=== PATIENT | female | born 1990 | race Caucasian/White ===

== ENCOUNTER → 2016-11-16 | Outpatient (CLI) | payer OTHER ==
[2016-11-16 10:28] LABS: PROLACTIN 10.03 ng/mL
== END | disposition home or self-care (01) ==
LOC: C.LAB1850 08:09 → MERGE 08:09
PROVIDERS: ATTEND Physician Assistant
DX: Z31.41 Encounter for fertility testing (principal)

== ENCOUNTER → 2017-03-16 | Outpatient (CLI) | payer OTHER ==
--- NOTE | 2017-03-16 11:27 | DIAGNOSTIC IMAGING REPORT ---
HYSTEROSALPINGOGRAM CLINICAL HISTORY: FERTILITY TESTING *DR BROWN TO DO* COMPARISON STUDY: No previous studies for comparison. FINDINGS: Fluoroscopic assistance during a hysterosalpingogram was performed. The uterus is tilted to the right. Both fallopian tubes filled a normal fashion. There is free spillage bilaterally. IMPRESSION: The fallopian tubes are patent bilaterally. Electronically signed by: Mike Kumar M.D. 03/16/2017 11:25 AM Dictated Date/Time: 03/16/2017 11:25 AM
== END | disposition home or self-care (01) ==
LOC: C.RAD 10:31
PROVIDERS: ATTEND Obstetrics & Gynecology
DX: Z31.41 Encounter for fertility testing (principal)

== ENCOUNTER 2018-08-08 22:27 | Inpatient (IN) ==
[2018-08-09] MEDS ORDERED: OXYTOCIN 30 UNITS/500 ML BAG IV PRN ×2 (00:22→09:34)
[2018-08-09] MEDS: LACTATED RINGER'S 1,000 ML IV PRN ×2 (00:41→02:04)
[2018-08-09 00:42] LABS: Hemoglobin 13.6 g/dL (12.0-16.0); Mean Corpuscular Volume 83.2 fL (80-100); Mean Platelet Volume 9.2 fL (7.4-10.4); Platelet Count 173 K/uL (130-400); RDW Coefficient of Variation 13.7 % (11.5-14.5); RDW Standard Deviation 41.6 fL (36.4-46.3); Red Blood Count 4.57 M/uL (4.2-5.4); White Blood Count 11.22 K/uL (4.8-10.8)
[2018-08-09] MEDS ORDERED: BUPIVACAINE 0.25% 30 ML VIAL ONE (00:43)
[2018-08-09] MEDS ORDERED: ePHEDrine sulfate 50 MG/ML AMP ONE (00:43)
[2018-08-09 00:45] LABS: Mean Corpuscular Hgb Conc 35.8 g/dL (32-36)
[2018-08-09] MEDS ORDERED: fentaNYL 2MCG/ML ROPIV 1.25MG/ML 100 ML BAG EPI ONE (00:45)
[2018-08-09] MEDS ORDERED: fentaNYL citrate 100 MCG/2 ML VIAL ONE (00:45)
--- NOTE | 2018-08-09 01:04 | Anesthesiology Consultation ---
Date of Service August 09, 2018 Assessment & Plan Chart Review Chart Review: Patient NOT seen in Pre Admission Testing and Acceptable Risk for Labor Epidural Consults Requested none ASA ASA2 Proposed Anesthesia Anesthesia Type: Labor Epidural Risk / Benefits Reviewed With: PT / POA / Parent / Guardian, Accepts Plan and Informed Consent Obtained History Height/Weight Height: 1.7 m Weight: 102.512 kg Allergies Allergy/AdvReac Type Severity Reaction Status Date / Time No Known Allergies Allergy Unverified 08/08/18 23:31 Medications Home Medications Medication Instructions Recorded Confirmed Last Taken vit-iron fum-folic ac 1 tab PO DAILY 08/08/18 08/08/18 08/07/18 21:30 [ Vitamin] Active Medications Generic Name Dose Route Start Last Admin Trade Name Freq PRN Reason Stop Dose Admin Lactated Ringer's 1,000 mls @ 125 mls/hr 08/09/18 00:22 08/09/18 00:41 Lr IV 08/11/18 00:21 999 mls/hr .Q8H PRN Administration L&D Protocol Protocol NPO Date Last Intake of Fluids: 08/09/18 Time Last Intake of Fluids: 00:30 Date Last Intake of Solids: 08/08/18 Time Last Intake of Solids: 19:00 Past Medical History Medical History GERD (gastroesophageal reflux disease) History of tooth extraction Exercise / Class Metabolic Activity II 4-5 Yardwork/Stairs/Walk up hill Past Surgical History Surgical History History of cholecystectomy Past Anesthesia History No Hx of Anesthesia Complications and No Family Hx of Anesthesia Complications History of PONV No Hx of PONV and No Hx of Motion Sickness Social History Smoking Status: Never smoker Do You Dip or Chew Tobacco: No Hx Alcohol Use: No Hx Substance Use: No substance use type: does not use Physical Exam Vital Signs Last Vital Signs Temp 36.9 C 08/08/18 23:04 Pulse 100 H 08/09/18 01:27 Resp 20 08/08/18 23:04 BP 121/84 08/09/18 01:17 Pulse Ox 96 08/09/18 01:27 ENMT Mouth: no TMJ abnormality and no TMJ clicking Thyromental Distance: > or= 3.5 Finger Breadths Mallampati Class: II Neck normal visual inspection; neck extension not limited Respiratory Auscultation: lungs clear to auscultation bilaterally Cardiovascular Rate/Rhythm: regular rate and regular rhythm Psychiatric Orientation: alert and oriented x 3 Testing Laboratory Results 08/09/18 00:31
[2018-08-09] MEDS ORDERED: NALOXONE HCL 0.4 MG/1 ML VIAL/CARP IV PRN (02:03)
[2018-08-09] MEDS ORDERED: fentaNYL 2MCG/ML ROPIV 1.25MG/ML 100 ML BAG EPI PRN (02:03)
[2018-08-09] MEDS ORDERED: NALBUPHINE HCL INJ 10 MG/ML AMP IV PRN (02:03)
[2018-08-09] MEDS ORDERED: ONDANSETRON INJ 2 MG/ML 2 ML VIAL IV PRN (02:03)
[2018-08-09] MEDS ORDERED: PROMETHAZINE HCL 12.5 MG in SODIUM CHLORIDE 0.9% 50 ML IV PRN (02:03)
[2018-08-09] MEDS ORDERED: ePHEDrine sulfate 50 MG/ML AMP IV PRN (02:03)
[2018-08-09] MEDS ORDERED: DiphenhydrAMINE HCL 50 MG/ML VIAL IV PRN (02:03)
[2018-08-09] MEDS ORDERED: NALOXONE HCL 1 MG in SODIUM CHLORIDE 0.9% 1000ML 1,000 ML IV PRN (02:03)
--- NOTE | 2018-08-09 07:24 | History & Physical Report ---
Date of Service August 09, 2018 Assessment & Plan (1) 38 weeks gestation of : Daniela Jennings is a 28yo who presents in labor. - GBS negative, RI, B+, VDRLR/RPR nonreactive - No membrane rupture at time of admission - Admit to L&D for spontaneous labor - Anticipate vaginal delivery with epidural - Anesthesiology consulted - LR 125cc/HR - NPO - Routine care History of Present Illness Chief Complaint: 38+ weeks , contractions Primary Care Provider: Jonah Suarez is a 28yo at 38+4 who presents for evaluation of labor. She is blood type B+, group B strep negative, VDRL nonreactive, rubella immune. She has no history of alcohol, recreational drug use, or tobacco use during . She is a past medical history of migraines. No headaches at time of visit. She is planning to deliver with an epidural. She plans to breast-feed exclusively. She is having strong contractions every 2 to 5 minutes at time of admission. No vaginal bleeding, no change in discharge, no pandey of fluid. Still feeling good movement. 3/95/-1/soft on admit No complications of . Denies other past medical problems Takes a vitamin daily, no other medication use No recent illnesses Allergies Allergy/AdvReac Type Severity Reaction Status Date / Time No Known Allergies Allergy Unverified 08/08/18 23:31 Home Medications Home Medications Medication Instructions Recorded Confirmed Type Vitamin 1 tab PO DAILY 08/08/18 08/08/18 History Patient History Medical History GERD (gastroesophageal reflux disease) History of tooth extraction Surgical History History of cholecystectomy Social History Preferred Language: Haitian Communication Ability: Effective Lay Brother Required: No Beliefs That Will Affect Care: None marital status: Current Living Situation: Family Current Living Situation Comment: lives with Other Information That Helps Us Care for You: No Feels Safe at Home: Yes Safety Concerns: Feels Safe At This Time Smoking Status: Never smoker Do You Dip or Chew Tobacco: No Second Hand Exposure: No Tobacco Cessation Education Requested by Patient: No Hx Alcohol Use: No Hx Substance Use: No Review of Systems All systems reviewed & are unremarkable except as noted in HPI & below Physical Exam Physical Exam: General: A&Ox3. NAD. Cooperative. HEENT: Atraumatic, normocephalic. Pulm: CTAB A&P. -wheezes, -rales, -rhonchi. Symmetrical chest rise. No increase work of breathing. No respiratory distress. Cardiac: RRR, -mrg. Radial pulses intact and symmetrical. Abdomen: Distended consisted with third trimester . No RUQ tenderness. On admission /-. Addendum: 0727hrs: Fully dilated per nursing staff. Results & Data Vital Signs (Past 12 Hours) Vital Signs Temp Pulse Resp BP Pulse Ox 08/09/18 07:17 104 H 99 08/09/18 07:16 102 H 93 08/09/18 07:14 100 H 133/82 08/09/18 07:12 101 H 100 08/09/18 07:07 97 H 99 08/09/18 07:03 36.7 C 18 08/09/18 07:02 112 H 97 08/09/18 07:00 97 H 128/77 94 08/09/18 06:57 101 H 99 08/09/18 06:52 93 H 99 08/09/18 06:47 98 H 99 08/09/18 06:44 100 H 134/83 08/09/18 06:42 103 H 99 08/09/18 06:37 96 H 100 08/09/18 06:32 106 H 98 08/09/18 06:29 86 127/74 08/09/18 06:27 91 H 99 08/09/18 06:22 97 H 98 08/09/18 06:17 93 H 99 08/09/18 06:16 88 116/70 08/09/18 06:12 99 H 100 08/09/18 06:07 97 H 98 08/09/18 06:02 94 H 98 08/09/18 06:00 95 H 131/66 08/09/18 05:57 90 97 08/09/18 05:52 84 96 08/09/18 05:47 84 98 08/09/18 05:44 96 H 120/63 08/09/18 05:42 82 97 08/09/18 05:37 89 98 08/09/18 05:32 89 98 08/09/18 05:29 88 127/68 08/09/18 05:27 92 H 97 08/09/18 05:22 90 96 06/06/19 05:17 90 97 08/09/18 05:14 97 H 129/72 08/09/18 05:12 94 H 97 08/09/18 05:07 94 H 96 08/09/18 05:02 91 H 97 08/09/18 05:01 94 H 130/72 08/09/18 04:57 92 H 98 08/09/18 04:52 95 H 98 08/09/18 04:47 92 H 97 08/09/18 04:44 95 H 129/91 08/09/18 04:42 88 98 08/09/18 04:40 98 H 92 08/09/18 04:37 92 H 100 08/09/18 04:32 95 H 94 08/09/18 04:29 85 130/67 08/09/18 04:27 92 H 97 08/09/18 04:22 107 H 97 08/09/18 04:17 109 H 97 08/09/18 04:15 106 H 135/88 08/09/18 04:12 102 H 97 08/09/18 04:11 107 H 94 08/09/18 04:07 90 97 08/09/18 04:02 89 97 08/09/18 04:00 99 H 133/81 08/09/18 03:57 98 H 97 08/09/18 03:52 95 H 98 08/09/18 03:47 106 H 98 08/09/18 03:44 109 H 132/86 08/09/18 03:42 103 H 99 08/09/18 03:37 102 H 99 08/09/18 03:32 101 H 98 08/09/18 03:29 106 H 132/83 08/09/18 03:27 105 H 100 08/09/18 03:23 108 H 129/84 08/09/18 03:22 119 H 98 08/09/18 03:17 103 H 98 08/09/18 03:12 125 H 99 08/09/18 03:09 102 H 124/75 08/09/18 03:07 93 H 97 08/09/18 03:02 96 H 96 08/09/18 02:57 98 H 96 08/09/18 02:53 103 H 122/77 08/09/18 02:52 96 H 98 08/09/18 02:47 103 H 96 08/09/18 02:42 100 H 99 08/09/18 02:39 100 H 130/82 08/09/18 02:37 95 H 98 08/09/18 02:32 101 H 98 08/09/18 02:27 110 H 99 08/09/18 02:23 111 H 122/70 08/09/18 02:22 117 H 98 08/09/18 02:17 101 H 100 08/09/18 02:12 117 H 99 08/09/18 02:08 108 H 117/62 08/09/18 02:07 122 H 100 08/09/18 02:06 126 H 125/71 08/09/18 02:04 125 H 123/69 08/09/18 02:02 128 H 126/63 97 08/09/18 02:00 117 H 140/75 08/09/18 01:59 125 H 139/73 08/09/18 01:58 125 H 135/73 08/09/18 01:57 129 H 96 08/09/18 01:56 134 H 131/70 08/09/18 01:54 120 H 132/76 08/09/18 01:52 118 H 97 08/09/18 01:51 106 H 126/76 91 08/09/18 01:50 100 H 134/83 08/09/18 01:47 97 H 96 08/09/18 01:42 100 H 97 08/09/18 01:38 122 H 137/86 08/09/18 01:37 99 H 96 08/09/18 01:32 101 H 97 08/09/18 01:27 100 H 96 08/09/18 01:22 100 H 97 08/09/18 01:17 93 H 121/84 96 08/09/18 01:12 102 H 97 08/09/18 01:07 101 H 97 08/09/18 01:02 103 H 97 08/09/18 00:59 105 H 131/82 08/09/18 00:57 96 H 98 08/09/18 00:52 92 H 97 08/08/18 23:04 36.9 C 99 H 20 126/84 Monitoring External Monitor Category I tracing, baseline ~130bpm Supervising Physician Co-Signing Physician Notes Patient seen and agree with the above findings and plan Resident Activity Tracking Resident Involvement: Resident Care Provided Care Provided: Adult Hospital Medicine
[2018-08-09] MEDS ORDERED: IBUPROFEN 600 MG TAB PO PRN (09:34)
[2018-08-09] MEDS ORDERED: BENZOCAINE 20% AER SPR 82.5 GM CAN EXT PRN (09:34)
[2018-08-09] MEDS ORDERED: ACETAMINOPHEN 325 MG TAB PO PRN (09:34)
[2018-08-09] MEDS ORDERED: SUPERCREAM 0.870% 15 GM JAR EXT PRN (09:34)
[2018-08-09] MEDS ORDERED: DIPHTHERIA/TETANUS/PERTUSSIS 0.5 ML SYR/VIAL IM ONE (09:34)
[2018-08-09] MEDS ORDERED: HYDROCORTISONE ACETATE 25 MG SUPP PR PRN (09:34)
[2018-08-09] MEDS ORDERED: BISACODYL 10 MG SUPP PR PRN (09:34)
--- NOTE | 2018-08-09 14:52 | Anesthesia Procedure Note ---
Date of Service August 09, 2018 Anesthesia Post Epidural Note Vital Signs Vital Signs: Temp Pulse Pulse Resp BP BP Pulse Ox 08/09/18 11:50 36.7 C 100 H 20 122/79 100 08/09/18 11:35 18 08/09/18 11:30 105 H 128/73 08/09/18 11:05 18 08/09/18 10:35 18 08/09/18 10:29 96 H 125/59 L 08/09/18 10:20 18 08/09/18 10:14 116 H 142/63 H 08/09/18 10:05 18 08/09/18 09:50 18 08/09/18 09:35 18 08/09/18 09:29 105 H 120/73 08/09/18 09:14 99 H 134/76 08/09/18 09:12 119 H 99 08/09/18 09:07 149 H 94 08/09/18 09:02 110 H 100 08/09/18 09:01 113 H 131/92 08/09/18 09:00 18 08/09/18 08:57 124 H 100 08/09/18 08:52 117 H 99 08/09/18 08:47 108 H 96 08/09/18 08:44 110 H 131/61 08/09/18 08:42 101 H 99 08/09/18 08:37 117 H 99 08/09/18 08:32 115 H 95 08/09/18 08:30 18 08/09/18 08:27 103 H 97 08/09/18 08:22 113 H 100 08/09/18 08:17 99 H 100 08/09/18 08:14 110 H 125/94 08/09/18 08:12 105 H 99 08/09/18 08:07 90 99 08/09/18 08:02 99 H 99 08/09/18 08:00 18 08/09/18 07:59 101 H 134/74 08/09/18 07:57 99 H 99 08/09/18 07:52 94 H 100 08/09/18 07:47 93 H 100 08/09/18 07:45 93 H 134/73 08/09/18 07:42 104 H 99 08/09/18 07:37 116 H 99 08/09/18 07:32 103 H 99 06/06/19 07:31 108 H 131/83 06/06/19 07:30 109 H 92 08/09/18 07:27 107 H 99 08/09/18 07:22 109 H 100 08/09/18 07:17 104 H 99 08/09/18 07:16 102 H 93 08/09/18 07:14 100 H 133/82 08/09/18 07:12 101 H 100 08/09/18 07:07 97 H 99 08/09/18 07:03 36.7 C 18 08/09/18 07:02 112 H 97 08/09/18 07:00 97 H 128/77 94 08/09/18 06:57 101 H 99 08/09/18 06:52 93 H 99 08/09/18 06:47 98 H 99 08/09/18 06:44 100 H 134/83 08/09/18 06:42 103 H 99 08/09/18 06:37 96 H 100 08/09/18 06:32 106 H 98 08/09/18 06:29 86 127/74 08/09/18 06:27 91 H 99 08/09/18 06:22 97 H 98 08/09/18 06:17 93 H 99 08/09/18 06:16 88 116/70 08/09/18 06:12 99 H 100 08/09/18 06:07 97 H 98 08/09/18 06:02 94 H 98 08/09/18 06:00 95 H 131/66 08/09/18 05:57 90 97 08/09/18 05:52 84 96 08/09/18 05:47 84 98 08/09/18 05:44 96 H 120/63 08/09/18 05:42 82 97 08/09/18 05:37 89 98 08/09/18 05:32 89 98 08/09/18 05:29 88 127/68 08/09/18 05:27 92 H 97 08/09/18 05:22 90 96 08/09/18 05:17 90 97 08/09/18 05:14 97 H 129/72 08/09/18 05:12 94 H 97 08/09/18 05:07 94 H 96 08/09/18 05:02 91 H 97 08/09/18 05:01 94 H 130/72 08/09/18 04:57 92 H 98 08/09/18 04:52 95 H 98 08/09/18 04:47 92 H 97 08/09/18 04:44 95 H 129/91 08/09/18 04:42 88 98 08/09/18 04:40 98 H 92 08/09/18 04:37 92 H 100 08/09/18 04:32 95 H 94 08/09/18 04:29 85 130/67 08/09/18 04:27 92 H 97 08/09/18 04:22 107 H 97 08/09/18 04:17 109 H 97 08/09/18 04:15 106 H 135/88 08/09/18 04:12 102 H 97 08/09/18 04:11 107 H 94 08/09/18 04:07 90 97 08/09/18 04:02 89 97 08/09/18 04:00 99 H 133/81 08/09/18 03:57 98 H 97 08/09/18 03:52 95 H 98 08/09/18 03:47 106 H 98 08/09/18 03:44 109 H 132/86 08/09/18 03:42 103 H 99 08/09/18 03:37 102 H 99 08/09/18 03:32 101 H 98 08/09/18 03:29 106 H 132/83 08/09/18 03:27 105 H 100 08/09/18 03:23 108 H 129/84 08/09/18 03:22 119 H 98 08/09/18 03:17 103 H 98 08/09/18 03:12 125 H 99 08/09/18 03:09 102 H 124/75 08/09/18 03:07 93 H 97 08/09/18 03:02 96 H 96 08/09/18 02:57 98 H 96 08/09/18 02:53 103 H 122/77 08/09/18 02:52 96 H 98 08/09/18 02:47 103 H 96 08/09/18 02:42 100 H 99 08/09/18 02:39 100 H 130/82 08/09/18 02:37 95 H 98 08/09/18 02:32 101 H 98 08/09/18 02:27 110 H 99 08/09/18 02:23 111 H 122/70 08/09/18 02:22 117 H 98 08/09/18 02:17 101 H 100 08/09/18 02:12 117 H 99 08/09/18 02:08 108 H 117/62 08/09/18 02:07 122 H 100 08/09/18 02:06 126 H 125/71 08/09/18 02:04 125 H 123/69 08/09/18 02:02 128 H 126/63 97 08/09/18 02:00 117 H 140/75 08/09/18 01:59 125 H 139/73 08/09/18 01:58 125 H 135/73 08/09/18 01:57 129 H 96 08/09/18 01:56 134 H 131/70 08/09/18 01:54 120 H 132/76 08/09/18 01:52 118 H 97 08/09/18 01:51 106 H 126/76 91 08/09/18 01:50 100 H 134/83 08/09/18 01:47 97 H 96 08/09/18 01:42 100 H 97 08/09/18 01:38 122 H 137/86 08/09/18 01:37 99 H 96 08/09/18 01:32 101 H 97 08/09/18 01:27 100 H 96 08/09/18 01:22 100 H 97 08/09/18 01:17 93 H 121/84 96 08/09/18 01:12 102 H 97 08/09/18 01:07 101 H 97 08/09/18 01:02 103 H 97 08/09/18 00:59 105 H 131/82 08/09/18 00:57 96 H 98 08/09/18 00:52 92 H 97 08/08/18 23:04 36.9 C 99 H 20 126/84 Notes Mental Status: alert / awake / arousable Nausea / Vomiting: adequately controlled Pain: adequately controlled Airway Patency, RR, SpO2: stable & adequate BP & HR: stable & adequate Hydration State: stable & adequate Neuraxial Anesthesia: was administered and sensory block is resolving Anesthetic Complications: no major complications apparent and Pt Satisfied with anesthetic care Epidural: Removed without complications and With tip intact
[2018-08-09] MEDS: DOCUSATE SODIUM 100 MG CAP PO SCH (20:11)
--- NOTE | 2018-08-10 06:40 | Obstetrical Progress Note ---
Date of Service <Herb Blakely MD - Last Filed: 08/10/18 06:39> August 10, 2018 Assessment & Plan <Herb Blakely MD - Last Filed: 08/10/18 06:39> (1) Vaginal delivery: Daniela is a 28yo who presented at 38 weeks now s/p now PPD#1 - GBS negative, blood type B+, RI - Feels well today. Eating well, voiding well, ambulating well. - Pain well controlled with ibuprofen 600mg Q4H PRN. - Routine care - After discharge will have [address] Rogers. (2) 38 weeks gestation of : Subjective <Herb Blakely MD - Last Filed: 08/10/18 06:39> Ambulation: ambulating normally Voiding: no voiding problems Passing Gas:: Yes Diet Tolerance:: regular diet Lochia:: Small Feeding Type:: breast feeding (some difficulty with latch. Working with advice and nurses) Current Pain Level(1-10): 0 Review of Systems Denies fever, chills, sweats Denies shortness of breath, difficulty breathing, chest pain, palpitations, chest pressure. Denies breast pain. Denies dysuria. Denies headache. Physical Exam <Herb Blakely MD - Last Filed: 08/10/18 06:39> Vital Signs (Past 24 Hours) Last Vital Signs Temp 36.6 C 08/10/18 03:45 Pulse 85 08/10/18 03:45 Resp 18 08/10/18 03:45 BP 92/60 L 08/10/18 03:45 Pulse Ox 98 08/10/18 03:45 General: Alert, oriented. No acute distress. Cardiac: Regular rate and rhythm, no murmurs/rubs/gallops. Respiratory: Clear to auscultation anterior and posteriorly, no wheezes/rales/rhonchi. No increased work of breathing. Symmetrical chest rise. No respiratory distress. Abdomen: Soft, nontender, nondistended. Bowel sounds present. Uterus: Uterine fundus firm, palpable 1cm below umbilicus. Lower Extremities: No lower extremity edema or swelling. No deep calf pain. Avila's negative bilaterally. <Marcelle Barone MD - Last Filed: 06/07/19 07:31> Co-Signing Physician Notes I have reviewed the resident's note and examined the patient myself, and agree with the note above. Resident Activity Tracking <Herb Blakely MD - Last Filed: 08/10/18 06:39> Resident Involvement: Resident Care Provided Care Provided: Adult Hospital Medicine
[2018-08-10 07:08] LABS: Hematocrit (blood only) 34.4 % (37-47); Hemoglobin 11.9 g/dL (12.0-16.0)
[2018-08-10] MEDS: DOCUSATE SODIUM 100 MG CAP PO SCH ×2 (09:07→20:44)
[2018-08-10] MEDS: PRENATAL VITAMIN 1 TAB PO SCH (09:07)
[2018-08-10] MEDS ORDERED: BISACODYL 5 MG TABEC PO SCH (20:00)
--- NOTE | 2018-08-11 06:56 | Obstetrical Progress Note ---
Date of Service <Herb Blakely MD - Last Filed: 08/11/18 06:56> August 11, 2018 Assessment & Plan <Herb Blakely MD - Last Filed: 08/11/18 06:56> (1) Vaginal delivery: Daniela is a 28yo who presented at 38 weeks now s/p now PPD#2 - GBS negative, blood type B+, RI - Feels well today. Eating well, voiding well, ambulating well. - well without difficulty - Pain well controlled with ibuprofen 600mg Q4H PRN. - Routine care - After discharge will have [address] Rogers. Subjective <Herb Blakely MD - Last Filed: 08/11/18 06:56> Ambulation: ambulating normally Voiding: no voiding problems Passing Gas:: Yes Diet Tolerance:: regular diet Lochia:: Small Feeding Type:: breast feeding Current Pain Level(1-10): 0 Review of Systems Denies fever, chills, sweats Denies shortness of breath, difficulty breathing, chest pain, palpitations, chest pressure. Denies breast pain. Denies dysuria. Denies headache. Physical Exam <Herb Blakely MD - Last Filed: 08/11/18 06:56> General: Alert, oriented. No acute distress. Cardiac: Regular rate and rhythm, no murmurs/rubs/gallops. Respiratory: Clear to auscultation anterior and posteriorly, no wheezes/rales/rhonchi. No increased work of breathing. Symmetrical chest rise. No respiratory distress. Abdomen: Soft, nontender, nondistended. Bowel sounds present. Uterus: Uterine fundus firm, palpable >2cm below umbilicus. Lower Extremities: No lower extremity edema or swelling. No deep calf pain. Avila's negative bilaterally. Results & Data <Herb Blakely MD - Last Filed: 08/11/18 06:56> Vital Signs (Past 12 Hours) Vital Signs Temp Pulse Resp BP 08/10/18 23:30 36.6 C 93 H 18 137/80 <Sienna Joyce MD, FACOG - Last Filed: 08/11/18 07:56> Co-Signing Physician Notes Resident Physician Supervision Note: I interviewed and examined the patient. Discussed with Dr. Blakely and agree with findings and plan as documented in the note. Any exceptions or clarifications are listed here: Doing well. Desires d/c. Instructions given. Documented By: Sienna Joyce MD, FACOG Resident Activity Tracking <Herb Blakely MD - Last Filed: 08/11/18 06:56> Resident Involvement: Resident Care Provided Care Provided: Adult Hospital Medicine
[2018-08-11] MEDS: PRENATAL VITAMIN 1 TAB PO SCH (08:41)
[2018-08-11] MEDS: DOCUSATE SODIUM 100 MG CAP PO SCH (08:41)
--- NOTE | 2018-08-15 18:46 | Delivery Summary ---
DATE OF OPERATION: 08/09/2018 PROCEDURE: Normal spontaneous vaginal delivery. SURGEON: Dileep Rogers MD PREOPERATIVE DIAGNOSES: 1. Single intrauterine at 38 weeks 4 days gestational age. 2. Labor. POSTOPERATIVE DIAGNOSES: 1. Single intrauterine at 38 weeks 4 days gestational age. 2. Labor. 3. Delivered. ESTIMATED BLOOD LOSS: 300 mL. DRAINS: None. FLUIDS: Continuous lactated ringer. URINE OUTPUT: Not measured. COMPLICATIONS: None. FINDINGS: Viable with the weight pending, Apgars of 8 and 9 at 1 and 5 minutes respectively. INDICATIONS: The patient is a 28-year-old G1, P0, admitted at 38 weeks 4 days gestational age in labor. At initial evaluation, she was found to be 3 cm dilated, 90% effaced, -1 station. The patient underwent a labor greater than 1 hour and was noted to progress to 5 cm dilated, 90% effaced, -1 station. The patient was admitted, received an epidural for anesthesia and progressed in labor without further augmentation to complete-complete +2, at which time she felt the urge to push. The patient pushed under an hour to achieve delivery. PROCEDURE: The patient progressed to 10 cm dilated, 100% effaced, +2 station, pushed over intact perineum with epidural anesthesia and delivered a viable with weight and Apgars as noted above. Head of the delivered in EDDY position and restituted to right transverse. Nuchal cord was noted. Body and shoulders quickly followed. The was delivered to maternal abdomen, noted to be vigorous. A 1 minute delayed cord clamping was initiated where the cord was doubly clamped and cut. Cord blood was then obtained. Attention was then turned to delivery of the placenta, it was delivered intact with 3-vessel cord with gentle cord traction. On inspection of the perineum, vagina and cervix, there was noted to be a second degree perineal laceration which was repaired with a traditional crown stitch using 3-0 Vicryl. Needle, sponge and instrument counts were correct at the completion of the case. Both mother and are stable in the immediate post delivery period. I attest to the content of the Intraoperative Record and any orders documented therein. Any exception s are noted below.
== END 2018-08-11 12:48 | disposition home or self-care (01) | DRG 807 ==
LOC: OPB 22:27 → 4S1 22:30 → 4N 08-09 11:50

== ENCOUNTER 2023-04-05 07:51 | Inpatient (IN) ==
[2023-04-05] MEDS ORDERED: LIDOCAINE 1% LOCAL 20 ML VIAL INFIL PRN (08:09)
[2023-04-05] MEDS ORDERED: OXYTOCIN 30 UNITS/NSS 30 UNITS/500 ML BAG IV PRN ×3 (08:09→17:09)
--- NOTE | 2023-04-05 08:09 | History & Physical Report ---
Date of Service April 05, 2023 Assessment & Plan (1) Encounter for supervision of normal in multigravida, antepartum: (2) Gestational diabetes mellitus (GDM) affecting , antepartum: Plan Pt is a 32 yo at 40 3/7 WGA presenting to labor and delivery for induction d/t postdates. External FHT and external uterine monitors used; Category I tracing; moderate FHT variability, + accelerations, no decels. Blood type; B+, GBS negative, rubella immune Plan to start oxytocin and rupture membranes later if necessary. Proceed with labor and plan for vaginal delivery. Admission and Anticipated Discharge Date Admission Date: April 05, 2023 History of Present Illness Chief Complaint: Elective induction Primary Care Provider: Raquel Hemphill Pt is a 32 y/o female currently at 40 3/7 WGA with an ROX of 04/02/23 as determined by ultrasound who is here for post-dates elective induction. Her was complicated by obesity BMI 35-39 at beginning of , GDM, and unable to initially visualize heart x2 which was evaluated by echo on 12/27/22 and was wnl. Pt states she is feeling well today. This is a baby boy and she has a boy at home. Last labor was spontaneous but she needed her membranes manually broken at around 10 cm. Overall feeling well and in good spirits. No recent illnesses. No questions or complaints at this time. no contractions; + movement; no fluid loss; no bloody show. Had regular appointments with OB. OB Labs: Blood Type B Positive 08/17/22 Antibody Screen NEGATIVE 08/17/22 Hemoglobin 12.3 g/dl (12.0-16.0) 01/10/23 Hematocrit 36.2 % (37.0-47.0) L 01/10/23 Mean Corpuscular Volume 86.9 fL (80.0-100.0) 08/17/22 Platelet Count 252 K/uL (130-400) 08/17/22 Rubella IgG Antibody Immune (Immune) 08/17/22 Rapid Plasma Reagin Nonreactive (Nonreactive) 08/17/22 Hepatitis B Surface Antigen Neg (Neg) 01/22/18 Hepatitis B Surface Antigen. NON-REACTIVE (NON-REACTIVE) 08/17/22 Hepatitis C Antibody (EIA) NON-REACTIVE (NON-REACTIVE) 08/17/22 HIV (1&2) Ab and P24 Ag, 4th Gener Neg (Neg) 01/22/18 HIV (1&2) Ag and Ab Confirmation NON-REACTIVE (NON-REACTIVE) 08/17/22 Glucose 1 Hour 50 gm Load 133 mg/dl (70-130) H 10/17/22 Maternal Serum Alpha Fetoprotein 43.3 NG/ML 03/07/18 OB Optional Labs: Chlamydia trachomatis RNA Not Detected (NotDetected) 08/17/22 Neisseria gonorrhoeae RNA Not Detected (NotDetected) 08/17/22 Thyroid Stimulating Hormone (TSH) 1.720 uIu/ml (0.300-4.500) 11/16/16 CF/SMA negative 01/22/18- HK cfdna-low risk--mln declined afp--akh Allergies Allergy/AdvReac Type Severity Reaction Status Date / Time No Known Allergies Allergy Verified 04/05/23 08:05 Home Medications Medication Instructions Recorded Confirmed Type aspirin 81 mg tablet,delayed 81 mg PO DAILY 08/16/22 04/05/23 History release (Adult Aspirin Regimen) acetone (urine) test (Ketone Urine #50 ea 01/20/23 04/04/23 Rx Test strips) blood sugar diagnostic (OneTouch #150 ea 01/20/23 04/04/23 Rx Verio test strips) blood-glucose meter (OneTouch #1 ea 01/20/23 04/04/23 Rx Verio Reflect Meter) lancets 33 gauge (OneTouch Delica #150 ea 01/20/23 04/04/23 Rx Plus Lancet) vits no.124-ferrous fum 1 tab PO DAILY 04/05/23 04/05/23 History 27 mg iron-folic acid 800 mcg tablet ( Vitamin) Patient History Medical History Reproductive mgmt, 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 IBS (irritable bowel syndrome) GERD (gastroesophageal reflux disease) Surgical History Hx of LASIK History of tooth extraction History of cholecystectomy Family History Grandmother (Paternal) Breast cancer Grandfather (Maternal) Colorectal cancer Denies family history of Ovarian cancer Social History (Updated 08/16/22 @ 13:43 by Cecelia Toussaint) Smoking Status: Never smoker Second Hand Exposure: No; Do You Dip or Chew Tobacco: No; Hx Alcohol Use: No Hx Substance Use: No Preferred Language: French Communication Ability: Effective Intermission Coordinator Required: No Beliefs That Will Affect Care: None marital status: marital status details: Pavel (32) [phone] Current Living Situation: Spouse Current Living Situation Comment: lives with , son, 1 dog. current occupational status: employed current occupation: gl accountant Other Information That Helps Us Care for You: No Feels Safe at Home: Yes Safety Concerns: Feels Safe At This Time Assistive Devices: None OB History Del. Date GA wks Lbr Lgth wt Sex Type del Anes Place Del Prov ? Comment 08/09/18 38 7lb 15oz M Epid al [facility] Dr. Ken Samayoa [employer] History Noncontributory Review of Systems no fever, no chills and no sweats no dyspnea no difficulty breathing no chest pain and no palpitations no dysuria no headache(s) no changes in vision Physical Exam Physical Exam: General: Alert, oriented. No acute distress. Cardiac: Regular rate and rhythm, no murmurs, gallops, or rubs. Respiratory: Clear to auscultation bilaterally a/p, no wheezes, rales, or rhonchi. No increased work of breathing. No respiratory distress. Abdomen: Gravid, Position: vertex Pelvic: 3-4cm/50%/-[address] Pina. Lower extremities: No lower extremity edema or swelling. No deep calf pain. Avila's negative bilaterally. Results & Data Vital Signs (Past 12 Hours) Vital Signs Pulse BP 04/05/23 07:59 110 H 129/76 Supervising Physician Co-Signing Physician Notes Resident Physician Supervision Note: I interviewed and examined the patient. Discussed with Dr. Humphreys and agree with findings and plan as documented in the note. Any exceptions or clarifications are listed here: 32 yo at 40 3/7 wga presents for IOL. PNI: A1GDM. SVE 3-4/50/-2, post. Cephalic confirmed by bsus. Fetus cat 1. GBS neg, epidural prn. EFW 8-9. Will start pit Documented By: Lauren Pina MD Resident Activity Tracking Resident Involvement: Resident Care Provided Care Provided: OB Delivery
[2023-04-05 08:49] LABS: Hematocrit (blood only) 36.6 % (37.0-47.0); Hemoglobin 11.9 g/dl (12.0-16.0); Mean Corpuscular Hemoglobin 27.2 pg (25.0-34.0); Mean Corpuscular Hgb Conc 32.5 g/dL (32.0-36.0); Mean Corpuscular Volume 83.6 fL (80.0-100.0); Mean Platelet Volume 10.8 fL (9.4-12.4); Platelet Count 184 K/uL (130-400); RDW Coefficient of Variation 14.4 % (11.5-14.5); RDW Standard Deviation 43.8 fL (36.4-46.3); Red Blood Count 4.38 M/uL (4.20-5.40); White Blood Count 10.87 K/ul (4.8-10.8)
[2023-04-05] MEDS: LACTATED RINGER'S 1,000 ML IV PRN ×3 (09:01→15:31)
[2023-04-05] MEDS ORDERED: ePHEDrine sulfate 50 MG/ML AMP ONE (12:34)
[2023-04-05] MEDS ORDERED: fentaNYL citrate PF 100 MCG/2 ML VIAL ONE (12:34)
[2023-04-05] MEDS ORDERED: BUPIVACAINE 0.25% PF 30 ML VIAL ONE (12:35)
[2023-04-05] MEDS ORDERED: SODIUM CHLORIDE 0.9% PF INJ 10 ML VIAL ONE (12:35)
[2023-04-05] MEDS ORDERED: fentANYL 2 MCG/ML BUPIVacaine 0.125%-NSS 100ML BAG ONE (12:35)
[2023-04-05] MEDS ORDERED: LIDOCAINE 2%/EPINEPHRINE 1:200,000 20 ML PF ONE (12:35)
[2023-04-05] MEDS ORDERED: ROPIVACAINE 0.5% PF 5 MG/ML 20 ML VIAL EPI PRN (13:03)
[2023-04-05] MEDS ORDERED: fentaNYL citrate PF 100 MCG/2 ML VIAL EPI PRN (13:03)
[2023-04-05] MEDS ORDERED: LIDOCAINE 2%/EPINEPHRINE 1:200,000 20 ML PF EPI STA (13:03)
[2023-04-05] MEDS ORDERED: fentANYL 2 MCG/ML BUPIVacaine 0.125%-NSS 100ML BAG EPI PRN (13:03)
[2023-04-05] MEDS ORDERED: fentaNYL citrate PF 100 MCG/2 ML VIAL EPI STA (13:03)
[2023-04-05] MEDS ORDERED: NALOXONE HCL 0.4 MG/1 ML VIAL/CARP IV PRN (13:03)
[2023-04-05] MEDS ORDERED: ONDANSETRON INJ 2 MG/ML 2 ML VIAL IV PRN (13:03)
[2023-04-05] MEDS ORDERED: diphenhydrAMINE 50 MG/ML VIAL IV PRN (13:03)
[2023-04-05] MEDS ORDERED: NALOXONE HCL 1 MG in SODIUM CHLORIDE 0.9% 1,000 ML IV PRN (13:03)
[2023-04-05] MEDS ORDERED: LIDOCAINE 2% MPF LOCAL 5 ML VIAL EPI PRN (13:03)
[2023-04-05] MEDS ORDERED: SODIUM CHLORIDE 0.9% PF INJ 10 ML VIAL EPI STA (13:03)
[2023-04-05] MEDS ORDERED: BUPIVACAINE 0.25% PF 30 ML VIAL EPI PRN (13:03)
[2023-04-05] MEDS ORDERED: ePHEDrine sulfate 50 MG/ML AMP IV PRN (13:03)
[2023-04-05] MEDS ORDERED: NALBUPHINE HCL 5 MG in SYRINGE 0 ML IV PRN (13:03)
[2023-04-05] MEDS ORDERED: SODIUM CHLORIDE 0.9% PF INJ 10 ML VIAL EPI PRN (13:03)
[2023-04-05] MEDS ORDERED: BUPIVACAINE 0.25% PF 30 ML VIAL EPI STA (13:03)
--- NOTE | 2023-04-05 13:03 | Anesthesiology Consultation ---
Date of Service April 05, 2023 Assessment & Plan ASA ASA2 Proposed Anesthesia Anesthesia Type: Labor Epidural Risk / Benefits Reviewed With: PT / POA / Parent / Guardian, Accepts Plan and Informed Consent Obtained History Height/Weight Height: 5 ft 7 in Weight: 106.141 kg Allergies Allergy/AdvReac Type Severity Reaction Status Date / Time No Known Allergies Allergy Verified 04/05/23 08:05 Medications Home Medications Medication Instructions Recorded Confirmed Last Taken aspirin 81 mg tablet,delayed 81 mg PO DAILY 08/16/22 04/05/23 04/04/23 08:00 release (Adult Aspirin Regimen) acetone (urine) test (Ketone Urine #50 ea 01/20/23 04/04/23 Unknown Test strips) blood sugar diagnostic (OneTouch #150 ea 01/20/23 04/04/23 Unknown Verio test strips) blood-glucose meter (OneTouch #1 ea 01/20/23 04/04/23 Unknown Verio Reflect Meter) lancets 33 gauge (OneTouch Delica #150 ea 01/20/23 04/04/23 Unknown Plus Lancet) vits no.124-ferrous fum 1 tab PO DAILY 04/05/23 04/05/23 04/04/23 08:00 27 mg iron-folic acid 800 mcg tablet ( Vitamin) Active Medications Generic Name Dose Route Start Last Admin Trade Name Freq PRN Reason Stop Dose Admin Oxytocin 30 units in 500 mls @ 333.333 mls/hr 04/05/23 08:09 04/05/23 16:11 Pitocin 30 Units/Nss IV 05/05/23 08:08 20 units/hr .Q1H30M PRN 333.3 mls/hr Bleeding Control Administration Protocol 20 UNITS/HR Lactated Ringer's 1,000 mls @ 125 mls/hr 04/05/23 08:09 04/05/23 15:48 Lr IV 04/07/23 08:08 Infused .Q8H PRN Infusion L&D Protocol Protocol Past Medical History Medical History Reproductive mgmt, 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 IBS (irritable bowel syndrome) GERD (gastroesophageal reflux disease) Exercise / Class Metabolic Activity II 4-5 Yardwork/Stairs/Walk up hill Past Family History Family History Grandmother (Paternal) Breast cancer Grandfather (Maternal) Colorectal cancer Denies family history of Ovarian cancer Past Surgical History Surgical History Hx of LASIK History of tooth extraction History of cholecystectomy Past Anesthesia History No Hx of Anesthesia Complications and No Family Hx of Anesthesia Complications History of PONV No Hx of PONV and No Hx of Motion Sickness Social History Smoking Status: Never smoker Do You Dip or Chew Tobacco: No Hx Alcohol Use: No Hx Substance Use: No substance use type: does not use Review of Systems denies fever/cough/ colds/ chest pain/ SOB/ BONI denies BONI Physical Exam Vital Signs Last Vital Signs Temp 37.0 C 04/05/23 15:00 Pulse 102 H 04/05/23 16:58 Resp 20 04/05/23 16:58 BP 117/72 04/05/23 16:58 Pulse Ox 87 L 04/05/23 15:55 ENMT Mouth: no TMJ abnormality and no dentition abnormality Thyromental Distance: > or= 3.5 Finger Breadths Mallampati Class: II Neck neck extension not limited Respiratory normal respiratory effort; no respiratory distress Auscultation: lungs clear to auscultation bilaterally Cardiovascular Rate/Rhythm: regular rate and regular rhythm Neurologic moves all extremities Psychiatric Orientation: alert and oriented x 3 Testing Laboratory Results 04/05/23 08:14 Blood Type B Positive 04/05/23 08:14 Antibody Screen NEGATIVE 04/05/23 08:14 04/05/23 04/05/23 14:03 09:58 POC Glucose 80 83
--- NOTE | 2023-04-05 14:49 | Labor Progress Brief Note ---
Date of Service April 05, 2023 Subjective comfortable w/ epidural Assessment & Plan (1) Encounter for supervision of normal in multigravida, antepartum: (2) Gestational diabetes mellitus (GDM) affecting , antepartum: Plan 32 yo at 40 3/7 wga admitted for IOL VSS Fetus cat 1 Labor - pit at 10, s/p arom. Continue induction GBS neg epidural in place Admission and Anticipated Discharge Date Admission Date: April 05, 2023 Physical Exam Genitourinary: Manual OB Exam: + cervical dilation 5 cm, + cervical effacement 70%, + station -2 and + amniotic fluid (arom clear) OB Exam Monitor Tracing: + external FHT monitor used, + external uterine monitor used (q3-5) and + category I (130/mod/+accel/-decel) Results & Data Vital Signs (Past 12 Hours) Vital Signs Temp Pulse Resp BP Pulse Ox 04/05/23 14:45 100 04/05/23 14:45 94 H 04/05/23 14:40 100 04/05/23 14:40 93 H 04/05/23 14:35 100 04/05/23 14:35 91 H 04/05/23 14:33 88 04/05/23 14:33 107/66 04/05/23 14:30 100 04/05/23 14:30 92 H 04/05/23 14:25 100 04/05/23 14:25 96 H 04/05/23 14:20 99 04/05/23 14:20 94 H 04/05/23 14:15 100 04/05/23 14:15 90 04/05/23 14:15 93 H 04/05/23 14:15 142/72 H 04/05/23 14:10 100 04/05/23 14:10 103 H 04/05/23 14:10 138/67 04/05/23 14:05 99 04/05/23 14:05 100 H 04/05/23 14:05 137/66 04/05/23 14:00 98 04/05/23 14:00 99 H 04/05/23 14:00 133/64 04/05/23 14:00 20 04/05/23 14:00 20 04/05/23 13:58 113 H 04/05/23 13:58 133/65 04/05/23 13:56 98 H 04/05/23 13:56 129/58 L 04/05/23 13:55 98 04/05/23 13:55 94 H 04/05/23 13:54 83 04/05/23 13:54 113/55 L 04/05/23 13:52 93 H 04/05/23 13:52 123/60 04/05/23 13:50 100 04/05/23 13:50 109 H 04/05/23 13:50 111 H 04/05/23 13:50 132/60 04/05/23 13:48 118 H 04/05/23 13:48 147/72 H 04/05/23 13:46 129 H 04/05/23 13:46 147/74 H 04/05/23 13:45 20 04/05/23 13:45 20 04/05/23 13:45 100 04/05/23 13:45 123 H 04/05/23 13:44 114 H 04/05/23 13:44 143/72 H 04/05/23 13:42 110 H 04/05/23 13:42 136/71 04/05/23 13:40 99 04/05/23 13:40 120 H 04/05/23 13:35 100 04/05/23 13:35 106 H 04/05/23 13:30 100 04/05/23 13:30 95 H 04/05/23 13:25 100 04/05/23 13:25 88 04/05/23 13:20 100 04/05/23 13:20 106 H 04/05/23 13:15 100 04/05/23 13:15 91 H 04/05/23 13:10 100 04/05/23 13:10 91 H 04/05/23 13:05 100 04/05/23 13:05 92 H 04/05/23 13:00 99 04/05/23 13:00 87 04/05/23 12:55 100 04/05/23 12:55 96 H 04/05/23 12:53 90 04/05/23 12:53 131/81 04/05/23 12:53 18 04/05/23 12:53 97.9 F 18 04/05/23 12:50 100 04/05/23 12:50 99 H 04/05/23 12:03 90 04/05/23 12:03 111/70 04/05/23 11:01 96 H 04/05/23 11:01 119/71 04/05/23 11:00 20 04/05/23 11:00 98.1 F 04/05/23 09:58 94 H 04/05/23 09:58 105/65 04/05/23 09:02 106 H 04/05/23 09:02 121/72 04/05/23 08:45 20 04/05/23 08:45 98.6 F 04/05/23 07:59 110 H 129/76 Coding Level of Care Code None Diagnoses Encounter for supervision of normal in multigravida, antepartum Z34.80 Gestational diabetes mellitus (GDM) affecting , antepartum O24.419
--- NOTE | 2023-04-05 16:06 | Delivery Summary ---
Vaginal Delivery Summary Date of Service April 05, 2023 Vaginal Delivery Summary and 2nd Degree LAC PREOPERATIVE DIAGNOSIS: 1. Single intrauterine at 40 3/7 wga 2. A1GDM POSTOPERATIVE DIAGNOSIS: 1. Single intrauterine at 40 3/7 wga 2. A1GDM 3. Delivered PROCEDURE: 1. Normal spontaneous vaginal delivery. SURGEON: Lauren Pina MD ANESTHESIA: Epidural. ESTIMATED BLOOD LOSS: 300 mL FLUIDS: Continuous LR. URINE OUTPUT: Not measured. COMPLICATIONS: None. CONDITION: Stable. INDICATIONS: 32 yo at 40 3/7 wga presents for induction of labor. She was 3cm on arrival. Pitocin was started. She received an epidural for pain control and underwent arom. She quickly progressed to complete and desired to push FINDINGS: A viable male , weight pending with Apgars of 8 and 9 at 1 and 5 minutes respectively. SPECIMEN: Cord blood OPERATIVE REPORT: The patient progressed to 10 cm, 100% effaced and +2 station, pushed over intact perineum with anesthesia to deliver a viable male infant, weight and Apgars as above. Head of delivered in GERARD position. No nuchal cord was present. Body and shoulders were delivered without difficulty. was delivered to maternal abdomen and nursing staff. Delayed cord clamping was performed for 60 seconds. Cord was clamped and cut. Cord blood was obtained. Placenta delivered spontaneously intact with 3-vessel cord. IV oxytocin and fundal massage were given for excellent hemostasis. Vagina, cervix, perineum, and placenta were inspected. A second degree laceration was noted and repaired using 3-0 vicryl in the usual fashion. There was excellent hemostasis. Sponge and needle counts correct x2. No sponges were left behind. Mother and stable in immediate period. [facility] [place] Charge Vaginal Delivery Codes: 10741 global code for the antepartum, delivery, and post- Delivery Type Details: and 2nd Degree LAC
[2023-04-05] MEDS ORDERED: bisacodyL 10 MG SUPP PR PRN (17:09)
[2023-04-05] MEDS ORDERED: HYDROCORTISONE ACETATE 25 MG SUPP PR PRN (17:09)
[2023-04-05] MEDS ORDERED: DIPHTHER/TETAN/PERTUS Vaccine (Tdap, Adol/Adult) 0.5mL IM ONE (17:09)
[2023-04-05] MEDS ORDERED: BENZOCAINE 20% SPRY 85 APPLN/85 GM CAN EXT PRN (17:09)
--- NOTE | 2023-04-05 17:25 | Anesthesia Procedure Note ---
Date of Service April 05, 2023 Anesthesia Post Epidural Note Vital Signs Vital Signs: Temp Pulse Resp BP Pulse Ox 37.0 C 102 H 20 117/72 87 L 04/05/23 15:00 04/05/23 16:58 04/05/23 16:58 04/05/23 16:58 04/05/23 15:55 Pain Intensity Bilateral Abdomen: Pain Intensity: 0 Notes Mental Status: alert / awake / arousable and participated in evaluation Nausea / Vomiting: adequately controlled Pain: adequately controlled Airway Patency, RR, SpO2: stable & adequate BP & HR: stable & adequate Hydration State: stable & adequate Neuraxial Anesthesia: was administered and sensory block resolved Anesthetic Complications: no major complications apparent and Pt Satisfied with anesthetic care Epidural: Removed without complications and With tip intact
[2023-04-05] MEDS: DOCUSATE SODIUM 100 MG CAP PO SCH (21:20)
[2023-04-05] MEDS: IBUPROFEN 600 MG TAB PO PRN (23:23)
[2023-04-06] MEDS: IBUPROFEN 600 MG TAB PO PRN (05:05)
--- NOTE | 2023-04-06 06:21 | Obstetrical Progress Note ---
Date of Service April 06, 2023 Assessment & Plan (1) care following vaginal delivery: Plan Patient is a 32F PPD #1 for a . The patient is feeling well today. Patient is eating, voiding, ambulating well, and breast feeding. Her pain is well controlled currently. She has not yet passed gas or had a bowel movement. She is interested in going home 04/07. Routine Care: OOB, ambulation, continue regular diet. Anticipate discharge 24-48 hours after , today or tomorrow (04/07). After discharge, patient will have a 6-week follow-up with Dr. Pina. Subjective Patient is a 32 y/o female who is PPD Day #1 following a and 2nd degree laceration at 40W 3D. Patient's was complicated by gestational diabetes mellitus. Today, the patient states that she is feeling well and her baby is doing well. Her vitals were stable overnight. She states that her bleeding is improving since yesterday. She reports that her pain is mild at 2/10 and well controlled with motrin. She states that she has been ambulating since her delivery, is tolerating a regular diet, and is voiding on her own. She is not gassing gas and has not had a bowel movement. She is breast feeding and said that it is going well so far. She has no questions of complaints at this time. She is interested in going home tomorrow. Constitutional: no fever, no chills or no sweats Respiratory: no dyspnea Cardiovascular: no chest pain or no palpitations Breast: no breast pain Genitourinary (female): no dysuria Neurologic: no headache(s) no changes in vision, no headaches Physical Exam General: Alert, oriented. No acute distress. Cardiac: Regular rate and rhythm, no murmurs, rubs, or gallops. Respiratory: Clear to auscultation bilaterally, no wheezes/rales/rhonchi. No increased work of breathing. Symmetrical chest rise. No respiratory distress. Abdomen: Soft, nontender, nondistended. Bowel sounds present. Uterus: Uterine fundus firm, palpable 6 to 7 cm below the umbilicus. Lower extremities: No lower extremity edema or swelling. No deep calf pain. Results & Data Vital Signs (Past 12 Hours) Vital Signs Temp Pulse Pulse Resp BP Pulse Ox O2 Del Method 04/06/23 05:10 36.4 C L 87 16 99/64 L Room Air 04/06/23 00:15 36.6 C 82 18 93/57 L Room Air 04/05/23 20:10 36.4 C L 105 H 16 119/76 98 Room Air 04/05/23 20:10 36.4 C L 105 H 16 119/76 98 Room Air 04/05/23 18:45 36.6 C 93 H 16 125/80 100 Room Air 04/05/23 18:15 36.5 C 93 H 16 125/80 100 Room Air
--- NOTE | 2023-04-06 06:28 | Obstetrical Progress Note ---
Date of Service <Marci Braxton DO Petr - Last Filed: 04/06/23 06:28> April 06, 2023 Assessment & Plan <Marci Braxton DO Petr - Last Filed: 04/06/23 06:28> (1) care following vaginal delivery: (2) Gestational diabetes mellitus (GDM) affecting , antepartum: Feels well today. Eating well, voiding well, ambulating well. Pain well controlled with prn ibuprofen. Routine care; OOB, ambulation, continue regular diet. Anticipate discharge 24-48 hours after , likely tomorrow. After discharge will have 6 week follow-up with Dr. Pina. <Lauren Pina MD - Last Filed: 04/06/23 07:49> (1) care following vaginal delivery: (2) Gestational diabetes mellitus (GDM) affecting , antepartum: Subjective <Marciapurva Humphreys DO - Last Filed: 04/06/23 06:28> Pt is a 32 y/o female who is PPD#1 following at 40 weeks. Pt states that she is feeling well today. She has been up and ambulating since the delivery, voiding and tolerating oral intake. Bleeding is improving graduallly. She notes pain mostly as cramps when but otherwise is feeling well. She states she thinks she would like to stay until tomorrow and go home tomorrow morning. Constitutional: no fever, no chills or no sweats Respiratory: no dyspnea Cardiovascular: no chest pain or no palpitations Breast: no breast pain Genitourinary (female): no dysuria Neurologic: no headache(s) no changes in vision, Physical Exam <Marci Fox Humphreys - Last Filed: 04/06/23 06:28> General: Alert, oriented. No acute distress. Cardiac: Regular rate and rhythm, no murmurs, rubs, or gallops. Respiratory: Clear to auscultation bilaterally, no wheezes/rales/rhonchi. No increased work of breathing. Symmetrical chest rise. No respiratory distress. Abdomen: Soft, nontender, nondistended. Bowel sounds present. Uterus: Uterine fundus firm, palpable below the umbilicus. Lower extremities: No lower extremity edema or swelling. No deep calf pain. Results & Data <Marci Humphreys DO - Last Filed: 04/06/23 06:28> Vital Signs (Past 12 Hours) Vital Signs Temp Pulse Pulse Resp BP Pulse Ox O2 Del Method 04/06/23 05:10 36.4 C L 87 16 99/64 L Room Air 04/06/23 00:15 36.6 C 82 18 93/57 L Room Air 04/05/23 20:10 36.4 C L 105 H 16 119/76 98 Room Air 04/05/23 20:10 36.4 C L 105 H 16 119/76 98 Room Air 04/05/23 18:45 36.6 C 93 H 16 125/80 100 Room Air Supervising Physician <Lauren Pina MD - Last Filed: 04/06/23 07:49> Co-Signing Physician Notes Resident Physician Supervision Note: I interviewed and examined the patient. Discussed with Dr. Humphreys and agree with findings and plan as documented in the note. Any exceptions or clarifications are listed here: PP1 s/p , doing well. VSS, exam benign and wnl. Desires dc home tomorrow Documented By: Lauren Pina MD Resident Activity Tracking <Marci Humphreys DO - Last Filed: 04/06/23 06:28> Resident Involvement: Resident Care Provided Care Provided: OB Delivery
[2023-04-06] MEDS: PRENATAL VITAMIN 1 TAB PO SCH (07:54)
[2023-04-06] MEDS: FERROUS SULFATE 325 MG TAB PO SCH (07:54)
[2023-04-06] MEDS: DOCUSATE SODIUM 100 MG CAP PO SCH ×2 (07:55→20:23)
[2023-04-06] MEDS: ACETAMINOPHEN 325 MG TAB PO PRN ×2 (11:59→20:23)
[2023-04-06] MEDS ORDERED: bisacodyL 5 MG TABEC PO SCH (20:00)
--- NOTE | 2023-04-07 07:20 | Obstetrical Progress Note ---
Date of Service <Marci Humphreys DO - Last Filed: 04/07/23 07:21> April 07, 2023 Assessment & Plan <Marci Humphreys DO - Last Filed: 04/07/23 07:21> (1) care following vaginal delivery: (2) Gestational diabetes mellitus (GDM) affecting , antepartum: Continuing to do well. Ambulating, tolerating diet, voiding. Pain well controlled with prn tylenol. Routine care; OOB, ambulation, continue regular diet. Anticipate discharge 24-48 hours after , today. After discharge will have 6 week follow-up with Dr. Pina. <Angy Molina MD, FACOG - Last Filed: 04/07/23 07:54> (1) care following vaginal delivery: (2) Gestational diabetes mellitus (GDM) affecting , antepartum: Subjective <Marci Humphreys DO - Last Filed: 04/07/23 07:21> Pt is a 32 y/o female who is PPD#2 following at 40 weeks. Today, pt states she is continuing to do well. No questions or complaints at this time. She is feeling well, bleeding is improving, cramping only when feeding and controlled with tylenol. She is breast feeding and it is going okay. Still ambulating, voiding, and feeding well. Ready to go home today. Constitutional: no fever, no chills or no sweats Respiratory: no dyspnea Cardiovascular: no chest pain or no palpitations Breast: no breast pain Genitourinary (female): no dysuria Neurologic: no headache(s) no changes in vision, Physical Exam <Marci Humphreys DO - Last Filed: 04/07/23 07:21> General: Alert, oriented. No acute distress. Cardiac: Regular rate and rhythm, no murmurs, rubs, or gallops. Respiratory: Clear to auscultation bilaterally, no wheezes/rales/rhonchi. No increased work of breathing. Symmetrical chest rise. No respiratory distress. Abdomen: Soft, nontender, nondistended. Bowel sounds present. Uterus: Uterine fundus firm, palpable below the umbilicus. Lower extremities: No lower extremity edema or swelling. No deep calf pain. Results & Data <Marci Humphreys DO - Last Filed: 04/07/23 07:21> Vital Signs (Past 12 Hours) Vital Signs Temp Pulse Resp BP Pulse Ox O2 Del Method 04/06/23 22:57 36.7 C 82 18 101/68 97 Room Air 04/06/23 20:35 36.5 C 89 20 115/77 97 Room Air Supervising Physician <Angy Molina MD, FACOG - Last Filed: 04/07/23 07:54> Co-Signing Physician Notes Resident Physician Supervision Note: I was present with Dr. Humphreys during the history and exam. I discussed the case with the resident and agree with the findings and plan as documented in the note. Any exceptions or clarifications are listed here: stable doing well. eating, voiding, ambulating, . abd soft ff 2 down nt, ext nt calves. ppd#2 s/p ready to go home, instructions reviewed, f/u 6 wk pp check. rh pos, ri. Documented By: Angy Molina MD, FACOG Resident Activity Tracking <Marci Humphreys DO - Last Filed: 04/07/23 07:21> Resident Involvement: Resident Care Provided Care Provided: OB Delivery
[2023-04-07] MEDS: ACETAMINOPHEN 325 MG TAB PO PRN (07:43)
[2023-04-07] MEDS: DOCUSATE SODIUM 100 MG CAP PO SCH (07:43)
[2023-04-07] MEDS: PRENATAL VITAMIN 1 TAB PO SCH (07:43)
[2023-04-07] MEDS: FERROUS SULFATE 325 MG TAB PO SCH (07:44)
== END 2023-04-07 11:00 | disposition home or self-care (01) | DRG 807 ==
LOC: 4S1 07:51 → 4E2 18:10
DX: Z3A.40 40 weeks gestation of pregnancy; Z37.0 Single live birth; O99.214 Obesity complicating childbirth; Z79.82 Long term (current) use of aspirin; O48.0 Post-term pregnancy; O70.1 Second degree perineal laceration during delivery; Z79.899 Other long term (current) drug therapy; O24.429 Gestational diabetes mellitus in childbirth, unspecified control